=== PATIENT | male | born 1950 | race Caucasian/White ===

== ENCOUNTER 2016-11-17 10:20 | Emergency (ER) | payer OTHER, MEDICARE ==
[~2016-11-17] VITALS: Ht 188 cm; Wt 88.9 kg
--- NOTE | ~2016-11-17 | EKG ---
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: VICKEY : [id number] Requested By: Horacio Farnsworth Order Number: [id number] MD: Pedro Ayala Measurements Intervals [place] Rate: 91 P: 84 [place]: 170 QRS: 127 QRSD: 130 T: 25 QT: 383 QTc: 472 Interpretive Statements Sinus rhythm Probable left atrial enlargement Nonspecific intraventricular conduction delay Anteroseptal infarct, age indeterminate No previous ECG available for comparison Electronically Signed On 11-18-2016 7:14:46 CDT by Pedro Ayala [email or web address] <ELECTRONICALLY SIGNED> By: Pedro Ayala MD, [facility] 11/18/16 0714 1028 27 Pedro Ayala MD, FACC /EPI
[2016-11-17] MEDS ORDERED: FLUOXETINE HCL40 MG PO (11:09)
[2016-11-17] MEDS ORDERED: DEPAKOTE 250MG250 M1 PO (11:09)
[2016-11-17] MEDS ORDERED: IBUPROFEN 800800 M1 PO (11:10)
[2016-11-17] MEDS ORDERED: UNICOMPLEX M TA1 TA1 PO (11:10)
[2016-11-17] MEDS ORDERED: BUPROPION HCL200 MG PO (11:10)
[2016-11-17 11:12] LABS: HEMATOCRIT 38.9 % (42.0-52.0); HEMOGLOBIN 13.5 gm/dL (14.0-18.0); MANUAL DIFF YES; MCH 32.1 pg (26.0-34.0); MCHC 34.8 g/dL (28.0-37.0); MCV 92.2 fL (80.0-100.0); PLATELET COUNT 186 thou/uL (150-400); RBC 4.22 mil/uL (4.50-6.00); RDW 12.6 % (10.5-14.5)
[2016-11-17 11:18] LABS: ANION GAP 7 mmol/L (7-16); BUN 17 mg/dL (7-18); CALCIUM 9.5 mg/dL (8.5-10.1); CHLORIDE 100 mmol/L (98-107); CO2 29 mmol/L (21-32); CREATININE 0.7 mg/dL (0.7-1.3); GLUCOSE 136 mg/dL (74-106); POTASSIUM 3.7 mmol/L (3.5-5.1); SODIUM 136 mmol/L (136-145)
[2016-11-17 11:25] LABS: ALBUMIN 3.4 g/dL (3.4-5.0); ALKALINE PHOSPHATASE 50 U/L (46-116); SGOT 19 U/L (15-37); SGPT 26 U/L (30-65); TOTAL BILIRUBIN 0.5 mg/dL (<0.1-1.0); TOTAL PROTEIN 6.2 g/dL (6.4-8.2); TROPONIN-I < 0.04 ng/mL (<0.04-0.07)
[2016-11-17] MEDS ORDERED: PEPCID20 MG PO (11:45)
[2016-11-17 11:46] LABS: ABSOLUTE NEUTROPHILS 10.8 thou/uL (1.4-8.2); ATYPICAL LYMPHS 1 %; TOTAL CELL COUNT 100
[2016-11-17 11:50] VITALS: BP 148/82
== END 2016-11-17 11:55 | disposition home or self-care (01) ==
LOC: ER 10:20
PROVIDERS: Physician Assistant
DX: R07.89 Other chest pain (principal); R10.13 Epigastric pain; F31.9 Bipolar disorder, unspecified; I10 Essential (primary) hypertension; F10.99 Alcohol use, unspecified with unspecified alcohol-induced disorder